=== PATIENT | male | born 1935 | race Two or more races ===

== ENCOUNTER 2017-07-15 11:28 | Inpatient (IN) | payer BC, MEDICAID ==
[~2017-07-15] VITALS: Ht 175.3 cm; Wt 86.0 kg
[2017-07-15] MEDS ORDERED: KLOR-CON M2020 MEQ PO (12:19)
[2017-07-15] MEDS ORDERED: MAGNESIUM OXID400 MG PO (12:21)
[2017-07-15] MEDS ORDERED: ALLERGY MEDICAT25 MG PO (12:22)
[2017-07-15] MEDS ORDERED: ZESTRIL20 MG PO (12:23)
[2017-07-15] MEDS ORDERED: ASPIRIN325 MG PO (12:25)
[2017-07-15] MEDS ORDERED: CARVEDILOL3.125 M1 PO (12:25)
[2017-07-15] MEDS ORDERED: FUROSEMIDE40 MG PO (12:26)
[2017-07-15] MEDS ORDERED: GOOD SENSE ASPI81 M3 PO (12:26)
[2017-07-15] MEDS ORDERED: PROAIR RES117 MCG/Ac IH (12:29)
[2017-07-15] MEDS ORDERED: FLUTICASONE PROP5 GM NS (12:29)
[2017-07-15 12:33] LABS: BASOPHIL % 0.5 % (0-2); PLATELET COUNT 211 x10^3mcL (130-400); RED CELL DISTRIBUTION WIDTH 14.2 % (11.5-14.5)
[2017-07-15] MEDS ORDERED: BAYER ASPIRIN R81 MG (12:34)
[2017-07-15 12:41] LABS: CALCIUM 8.4 mg/dL (8.5-10.1); CARBON DIOXIDE 27.2 mmol/L (21-32); CHLORIDE SERUM 101 mmol/L (98-107); GLUCOSE SERUM 89 mg/dL (74-106); POTASSIUM SERUM 4.6 mmol/L (3.5-5.1); SODIUM SERUM 134 mmol/L (136-145)
[2017-07-15 12:47] LABS: ALKALINE PHOSPHATASE 99 U/L (46-116); ALT/SGPT 21 U/L (16-63); AST/SGOT 9 U/L (15-37); BILIRUBIN TOTAL 0.5 mg/dL (0.20-1.00); TOTAL PROTEIN, SERUM 6.4 g/dL (6.4-8.2)
[2017-07-15 12:48] LABS: ALBUMIN 2.9 g/dL (3.4-5.0)
[2017-07-15 13:30] LABS: PHOSPHOROUS 2.9 mg/dL (2.5-4.9)
[2017-07-15 13:34] LABS: T3 TOTAL 1.01 ng/mL
[2017-07-15 13:39] LABS: FREE T4 1.17 ng/dL (0.76-1.46); FREE THYROXINE INDEX 2.7 ug/dL (1.4-4.5); T4(THYROXINE) 7.6 ug/dL (4.7-13.3)
[2017-07-15 14:15] VITALS: BP 89/67
[2017-07-15 17:29] VITALS: BP 123/57
[2017-07-15 17:38] LABS: microscopic required? NO
[2017-07-15 17:45] LABS: urine erythrocyte NEGATIVE (NEGATIVE)
[2017-07-15 20:30] VITALS: BP 122/57
[2017-07-15 20:40] VITALS: BP 122/57
[2017-07-15 22:22] VITALS: Ht 175.3 cm; Wt 86.0 kg
[2017-07-16 05:21] VITALS: BP 139/59
[2017-07-16 05:58] LABS: BASOPHIL % 0.4 % (0-2); PLATELET COUNT 187 x10^3mcL (130-400); RED CELL DISTRIBUTION WIDTH 14.5 % (11.5-14.5)
[2017-07-16 06:37] LABS: CALCIUM 8.4 mg/dL (8.5-10.1); CARBON DIOXIDE 26.9 mmol/L (21-32); CHLORIDE SERUM 101 mmol/L (98-107); CREATININE SERUM 0.9 mg/dL (0.7-1.3); GLUCOSE SERUM 89 mg/dL (74-106); POTASSIUM SERUM 4.8 mmol/L (3.5-5.1); SODIUM SERUM 133 mmol/L (136-145)
[2017-07-16 08:30] VITALS: BP 111/47
[2017-07-16 13:00] VITALS: BP 118/57
[2017-07-16 17:24] VITALS: BP 145/55
[2017-07-16 21:20] VITALS: BP 147/59
[2017-07-17 06:12] LABS: CALCIUM 8.6 mg/dL (8.5-10.1); CHLORIDE SERUM 100 mmol/L (98-107); CREATININE SERUM 0.9 mg/dL (0.7-1.3); GLUCOSE SERUM 90 mg/dL (74-106); POTASSIUM SERUM 4.4 mmol/L (3.5-5.1); SODIUM SERUM 134 mmol/L (136-145)
[2017-07-17 06:14] VITALS: BP 148/70
[2017-07-17 06:22] LABS: BASOPHIL % 0.3 % (0-2); PLATELET COUNT 175 x10^3mcL (130-400)
[2017-07-17 08:50] VITALS: BP 160/69
[2017-07-17 13:07] VITALS: BP 113/67
[2017-07-17] MEDS ORDERED: MIDODRINE HCL10 MG PO (14:14)
[2017-07-17 14:38] VITALS: BP 113/67
== END 2017-07-17 16:35 | disposition home or self-care (01) | DRG 312 ==
LOC: ED 11:28 → DU 12:48
PROVIDERS: Emergency Medicine; ADMIT Family Medicine Sports Medicine
DX: I95.1 Orthostatic hypotension (principal); I50.43 Acute on chronic combined systolic (congestive) and diastolic (congestive) heart failure; I45.2 Bifascicular block; E44.0 Moderate protein-calorie malnutrition; E87.1 Hypo-osmolality and hyponatremia; R55 Syncope and collapse; K29.70 Gastritis, unspecified, without bleeding; J06.9 Acute upper respiratory infection, unspecified; I11.0 Hypertensive heart disease with heart failure; D64.9 Anemia, unspecified; J45.909 Unspecified asthma, uncomplicated; Z68.28 Body mass index [BMI] 28.0-28.9, adult; Z87.891 Personal history of nicotine dependence
CPT/HCPCS: 83880; 84439; J7030; J7620; Q0092

== ENCOUNTER 2019-11-25 17:51 | Emergency (ER) | payer OTHER, MEDICAID ==
[~2019-11-25] VITALS: Ht 177.8 cm; Wt 81.6 kg
[~2019-11-25 17:51] MED LIST: ALLERGY MEDICAT25 MG PO; ASPIRIN325 MG PO; BAYER ASPIRIN R81 MG; CARVEDILOL3.125 M1 PO; FLUTICASONE PROP5 GM NS; FUROSEMIDE40 MG PO; GOOD SENSE ASPI81 M3 PO; KLOR-CON M2020 MEQ PO; MAGNESIUM OXID400 MG PO; MIDODRINE HCL10 MG PO; PROAIR RES117 MCG/Ac IH; ZESTRIL20 MG PO
[2019-11-25 17:57] VITALS: Ht 177.8 cm; Wt 81.6 kg
[2019-11-25 18:37] LABS: BASOPHIL % 0.2 % (0-2); PLATELET COUNT 242 x10^3mcL (130-400)
[2019-11-25 18:45] LABS: RED CELL DISTRIBUTION WIDTH 14.9 % (11.5-14.5)
[2019-11-25 18:49] LABS: CALCIUM 8.9 mg/dL (8.5-10.1); CARBON DIOXIDE 26.6 mmol/L (21-32); CHLORIDE SERUM 98 mmol/L (98-107); CREATININE SERUM 1.5 mg/dL (0.7-1.3); GLUCOSE SERUM 142 mg/dL (74-106); POTASSIUM SERUM 4.6 mmol/L (3.5-5.1); SODIUM SERUM 132 mmol/L (136-145)
[2019-11-25 18:53] LABS: ALBUMIN 3.6 g/dL (3.4-5.0); ALKALINE PHOSPHATASE 103 U/L (46-116); ALT/SGPT 35 U/L (16-63); AST/SGOT 19 U/L (15-37); BILIRUBIN TOTAL 0.6 mg/dL (0.20-1.00); TOTAL PROTEIN, SERUM 7.7 g/dL (6.4-8.2)
[2019-11-25 22:51] VITALS: BP 128/77
== END 2019-11-25 22:45 | disposition home or self-care (01) ==
LOC: ED 17:51
PROVIDERS: Emergency Medicine
DX: J18.1 Lobar pneumonia, unspecified organism (principal); I11.0 Hypertensive heart disease with heart failure; I50.9 Heart failure, unspecified
CPT/HCPCS: 36600; 83880; 87804; J0696; J1940; J3490; J7060; Q0092